=== PATIENT | male | born 1955 | race Caucasian/White ===

== ENCOUNTER 2017-02-23 13:28 | Emergency (ER) | payer MEDICARE ==
[~2017-02-23] VITALS: Ht 165.1 cm; Wt 70.3 kg
[~2017-02-23 13:28] MED LIST: ASPIRIN ADULT L81 M1 PO; CELEXA20 MG PO; COLSALIDE IMPR0.6 MG PO; HYDROCODONE BIT1 T11 PO; INDOCIN25 MG PO; INDOCIN50 MG PO; INDOMETHACIN50 MG PO; LIPITOR20 MG PO; LISINOPRIL20 MG PO; LISINOPRIL30 MG PO; LOPRESSOR25 MG PO; MEDROL DOSEPAK4 MG PO; NORCO 325 MG-51 TAB PO; NORCO 5-325 TA1 EACH PO; PRILOSEC20 M1 PO; TRAMADOL HCL50 MG PO; TRAZODONE50 MG PO; VICODIN 5/500 505 MG PO; VOLTAREN50 M1 PO
[2017-02-23] MEDS ORDERED: INDOMETHACIN50 MG PO (14:05)
== END 2017-02-23 14:51 | disposition home or self-care (01) ==
LOC: ED 13:28
DX: M10.9 Gout, unspecified (principal); Z98.890 Other specified postprocedural states; Z79.899 Other long term (current) drug therapy; Z79.82 Long term (current) use of aspirin

== ENCOUNTER 2017-05-18 10:20 | Emergency (ER) | payer MEDICARE ==
[~2017-05-18] VITALS: Ht 165.1 cm; Wt 70.3 kg
[2017-05-18] MEDS ORDERED: DELTASONE20 M1 PO (11:10)
[2017-05-18] MEDS ORDERED: NORCO 5-325 TA1 EACH PO (11:10)
== END 2017-05-18 12:00 | disposition home or self-care (01) ==
LOC: ED 10:20
DX: M10.9 Gout, unspecified (principal); Z79.82 Long term (current) use of aspirin

== ENCOUNTER 2018-01-08 18:40 | Emergency (ER) | payer MEDICARE ==
[~2018-01-08] VITALS: Ht 165.1 cm; Wt 68.0 kg
[~2018-01-08 18:40] MED LIST changes: +DELTASONE20 M1 PO
[2018-01-08] MEDS ORDERED: COLCHICINE0.6 M2 PO (19:04)
== END 2018-01-08 19:20 | disposition home or self-care (01) ==
LOC: ED 18:40
DX: M10.9 Gout, unspecified (principal); M25.531 Pain in right wrist; M79.675 Pain in left toe(s); Z79.82 Long term (current) use of aspirin; Z79.899 Other long term (current) drug therapy

== ENCOUNTER → 2018-01-24 | Outpatient (CLI) | payer OTHER ==
[~2018-01-24] MED LIST changes: +COLCHICINE0.6 M2 PO
[2018-01-24 09:01] LABS: HEMATOCRIT 38.9 % (42.0-52.0); HEMOGLOBIN 12.6 g/dl (14.0-18.0); MEAN CORPUSCULAR HGB 29.2 pg (27.0-31.0); MEAN CORPUSCULAR HGB CONC 32.4 g/dl (33.0-37.0); MEAN PLATELET VOLUME 9.7 fl (9.6-12.3); RED BLOOD COUNT 4.32 10*6/uL (4.50-5.90); RED CELL DISTRI WIDTH 13.2 % (0-14.5); WHITE BLOOD COUNT 7.6 10*3/uL (4.8-10.8)
[2018-01-24 09:23] LABS: ALBUMIN 3.5 gm/dl (3.1-4.5); CREATININE 1.75 mg/dL (0.70-1.30); POTASSIUM 3.8 mmol/L (3.5-5.1); TOTAL PROTEIN 7.7 gm/dL (6.4-8.2)
== END | disposition home or self-care (01) ==
LOC: LAB 08:11
PROVIDERS: Family Medicine
DX: I25.10 Atherosclerotic heart disease of native coronary artery without angina pectoris (principal); I10 Essential (primary) hypertension; M19.90 Unspecified osteoarthritis, unspecified site; E78.00 Pure hypercholesterolemia, unspecified; E55.9 Vitamin D deficiency, unspecified

== ENCOUNTER → 2018-12-12 | Outpatient (CLI) | payer OTHER ==
[2018-12-12 13:27] LABS: HEMATOCRIT 39.2 % (42.0-52.0); HEMOGLOBIN 12.8 g/dl (14.0-18.0)
[2018-12-12 13:53] LABS: CREATININE 2.43 mg/dL (0.70-1.30); PHOSPHOROUS 2.1 mg/dL (2.5-4.9); POTASSIUM 4.1 mmol/L (3.5-5.1)
[2018-12-12 14:11] LABS: BILIRUBIN NEGATIVE (NEGATIVE); BLOOD NEGATIVE (NEGATIVE); CLARITY CLEAR (CLEAR); COLOR YELLOW (YELLOW); GLUCOSE NEGATIVE (NEGATIVE); KETONE NEGATIVE (NEGATIVE); LEUKO ESTERASE TRACE (NEGATIVE); NITRITE NEGATIVE (NEGATIVE); SPECIFIC GRAVITY <= 1.005 (1.005-1.030); UROBILINOGEN 0.2 E.U./dl (0.2-1.0)
[2018-12-12 14:18] LABS: VITAMIN D, 25-HYDROXY 32.8 ng/mL (30-100)
[2018-12-12 14:20] LABS: EPITHELIAL CELLS 0-2
[2018-12-12 14:21] LABS: WBC 0-2 wbc/hpf (0-5)
[2018-12-13 11:10] LABS: MICRO ALBUMIN/CRE RATIO <5.9 (0.0-30.0)
== END | disposition home or self-care (01) ==
LOC: LAB 13:03 → US 13:30
PROVIDERS: Internal Medicine
DX: N20.0 Calculus of kidney (principal); E55.9 Vitamin D deficiency, unspecified; I10 Essential (primary) hypertension; N28.9 Disorder of kidney and ureter, unspecified; N28.1 Cyst of kidney, acquired

== ENCOUNTER → 2018-12-26 | Outpatient (CLI) | payer OTHER ==
[2018-12-26 09:57] LABS: CREATININE 1.65 mg/dL (0.70-1.30); POTASSIUM 3.8 mmol/L (3.5-5.1)
== END | disposition home or self-care (01) ==
LOC: LAB 08:59
PROVIDERS: Internal Medicine
DX: N28.9 Disorder of kidney and ureter, unspecified (principal)

== ENCOUNTER → 2019-03-22 | Outpatient (CLI) | payer OTHER ==
[2019-03-22 10:46] LABS: HEMATOCRIT 40.1 % (42.0-52.0); HEMOGLOBIN 13.1 g/dl (14.0-18.0)
[2019-03-22 10:51] LABS: BILIRUBIN NEGATIVE (NEGATIVE); BLOOD NEGATIVE (NEGATIVE); CLARITY CLEAR (CLEAR); COLOR YELLOW (YELLOW); GLUCOSE NEGATIVE (NEGATIVE); KETONE NEGATIVE (NEGATIVE); LEUKO ESTERASE NEGATIVE (NEGATIVE); NITRITE NEGATIVE (NEGATIVE); PH 5.5 (5.0-9.0); UROBILINOGEN 0.2 E.U./dl (0.2-1.0)
[2019-03-22 11:11] LABS: CREATININE 1.62 mg/dL (0.70-1.30); PHOSPHOROUS 2.7 mg/dL (2.5-4.9); POTASSIUM 3.6 mmol/L (3.5-5.1)
[2019-03-22 11:21] LABS: BACTERIA 1+; EPITHELIAL CELLS 0-2; MUCOUS TRACE; RBC 0-2 rbc/hpf (0-2)
[2019-03-22 12:35] LABS: PTH INTACT 64.9 pg/mL (18.5-88.0)
[2019-03-23 10:07] LABS: MICRO ALBUMIN/CRE RATIO <2.5 (0.0-30.0)
== END | disposition home or self-care (01) ==
LOC: LAB 09:50
PROVIDERS: Internal Medicine
DX: I12.9 Hypertensive chronic kidney disease with stage 1 through stage 4 chronic kidney disease, or unspecified chronic kidney disease (principal); N18.4 Chronic kidney disease, stage 4 (severe); E55.9 Vitamin D deficiency, unspecified; Z79.899 Other long term (current) drug therapy

== ENCOUNTER → 2020-11-21 | Outpatient (CLI) | payer MEDICARE | END | disposition home or self-care (01) | LOC: RAD 08:50 | PROVIDERS: ATTEND Preventive Medicine Occupational Medicine | DX: M47.817 Spondylosis without myelopathy or radiculopathy, lumbosacral region (principal); I70.0 Atherosclerosis of aorta; M54.41 Lumbago with sciatica, right side; G89.29 Other chronic pain ==

== ENCOUNTER → 2022-07-01 | Outpatient (CLI) | payer MEDICARE | END | disposition home or self-care (01) | LOC: RAD 10:09 | PROVIDERS: ATTEND Nurse Practitioner Primary Care | DX: M47.816 Spondylosis without myelopathy or radiculopathy, lumbar region (principal); M51.36 Other intervertebral disc degeneration, lumbar region; G89.29 Other chronic pain; M54.41 Lumbago with sciatica, right side; M46.06 Spinal enthesopathy, lumbar region ==

== ENCOUNTER → 2023-02-08 | Outpatient (CLI) | payer MEDICARE | END | disposition home or self-care (01) | LOC: US 13:52 | PROVIDERS: ATTEND Nurse Practitioner | DX: I65.23 Occlusion and stenosis of bilateral carotid arteries (principal); R09.89 Other specified symptoms and signs involving the circulatory and respiratory systems ==